=== PATIENT | female | born 1990 | race African-American/Black ===

== ENCOUNTER 2017-07-21 15:59 | Emergency (ER) | payer OTHER ==
[~2017-07-21] VITALS: Ht 160 cm; Wt 63.6 kg
[~2017-07-21 15:59] MED LIST: DSS100 PO; IBUP-2070 PO; PREN-134 PO
[2017-07-21 16:53] VITALS: BP 122/70
[2017-07-21] MEDS ORDERED: SODIUM CHLORIDE 0.9% 1,000 ML IV ONE (17:00)
[2017-07-21 17:13] LABS: BASOPHILS % (AUTO) 0.2 % (0.0-2.0); EOSINOPHILS % (AUTO) 0.7 % (1.0-6.0); HEMATOCRIT 38.2 % (36-46); HEMOGLOBIN 13.2 g/dL (12.0-16.0); LYMPHOCYTES # (AUTO) 2.7 K/uL (1.0-4.8); LYMPHOCYTES % (AUTO) 34.6 % (22.0-44.0); MEAN CORPUSCULAR HEMOGLOBIN 31.3 pg (26.0-34.0); MEAN CORPUSCULAR HGB CONC 34.4 G/dL (31.0-37.0); MEAN CORPUSCULAR VOLUME 91 fL (80-100); MONOCYTES % (AUTO) 12.1 % (2.0-9.0); NEUTROPHILS # (AUTO) 4.2 K/uL (1.8-7.7); NEUTROPHILS % (AUTO) 52.4 % (40.0-70.0); PLATELET COUNT (AUTO) 189 K/uL (150-450); RED BLOOD CELL COUNT(AUTO) 4.21 MIL/uL (4.00-5.20); RED CELL DISTRIBUTION WIDTH 14.4 % (11.5-14.5); WHITE BLOOD COUNT (AUTO) 7.9 K/uL (4.5-11.0)
[2017-07-21] MEDS ORDERED: DICYCLOMINE HCL 20 MG TABLET PO ONE (17:15)
[2017-07-21] MEDS ORDERED: ONDANSETRON HCL 4 MG/2 ML VIAL IVP ONE (17:15)
[2017-07-21 17:21] LABS: ANION GAP 11 mmol/L (8-16); CALCIUM, TOTAL 8.8 mg/dL (8.8-10.5); CARBON DIOXIDE 26 mmol/L (22-29); CHLORIDE 101 mmol/L (98-107); CREATININE 0.79 mg/dL (0.60-1.30); GLOMERULAR FILTR. RATE CALC > 60 mL/min (>60); POTASSIUM 3.4 mmol/L (3.5-5.1); SODIUM SERUM 138 mmol/L (136-145); UREA NITROGEN, BLOOD 11 mg/dL (7-18)
[2017-07-21 17:27] LABS: ALANINE AMINOTRANSFERASE 24 U/L (12-78); ALBUMIN 3.5 g/dL (3.4-5.0); ASPARTATE AMINOTRANSFERASE 20 U/L (15-37); BILIRUBIN,TOTAL 0.1 mg/dL (0.1-1.0); TOTAL PROTEIN, SERUM 7.6 g/dL (6.4-8.2)
== END 2017-07-21 18:13 | disposition home or self-care (01) ==
LOC: EMS 16:06
DX: R10.13 Epigastric pain (principal); R11.2 Nausea with vomiting, unspecified; R19.7 Diarrhea, unspecified; F17.210 Nicotine dependence, cigarettes, uncomplicated
CPT/HCPCS: 36415; 80053; 81025; 83690; 85025; 96374; 99284; J2405; J7030

== ENCOUNTER 2020-07-14 17:55 | Emergency (ER) | payer MEDICAID, OTHER ==
[~2020-07-14] VITALS: Ht 157.5 cm; Wt 65.0 kg
[2020-07-14 21:58] VITALS: BP 113/80
== END 2020-07-14 22:03 | disposition home or self-care (01) ==
LOC: EMS 17:55
DX: S52.045A Nondisplaced fracture of coronoid process of left ulna, initial encounter for closed fracture (principal); F17.210 Nicotine dependence, cigarettes, uncomplicated; Y08.89XA Assault by other specified means, initial encounter; Y93.89 Activity, other specified; Y92.89 Other specified places as the place of occurrence of the external cause; Y99.8 Other external cause status
CPT/HCPCS: 29105

== ENCOUNTER 2022-08-23 18:11 | Emergency (ER) | payer OTHER ==
[~2022-08-23] VITALS: Ht 157.5 cm; Wt 68.2 kg
[2022-08-23 18:15] VITALS: BP 113/62
[2022-08-23] MEDS ORDERED: ACET-2247 PO (18:18)
== END 2022-08-23 20:50 | disposition home or self-care (01) ==
LOC: EMS 18:30
DX: K08.89 Other specified disorders of teeth and supporting structures (principal); F17.210 Nicotine dependence, cigarettes, uncomplicated
CPT/HCPCS: 99283; Z7502

== ENCOUNTER 2022-09-14 20:13 | Emergency (ER) | payer OTHER ==
[~2022-09-14] VITALS: Ht 157.5 cm; Wt 65.0 kg
[~2022-09-14 20:13] MED LIST changes: +ACET-2247 PO; -DSS100 PO; -IBUP-2070 PO; -PREN-134 PO
[2022-09-14 20:34] VITALS: BP 102/63
[2022-09-14] MEDS ORDERED: KETOROLAC TROMETHAMINE 30 MG/ML VIAL IVP ONE (22:30)
[2022-09-14] MEDS ORDERED: ONDANSETRON HCL 4 MG/2 ML VIAL IVP ONE (22:30)
[2022-09-14] MEDS ORDERED: SODIUM CHLORIDE 0.9% 1,000 ML IV ONE (22:30)
[2022-09-15] MEDS ORDERED: IBUP-1492 PO (00:35)
== END 2022-09-15 01:35 | disposition home or self-care (01) ==
LOC: EMS 20:15
DX: G43.909 Migraine, unspecified, not intractable, without status migrainosus (principal); F17.210 Nicotine dependence, cigarettes, uncomplicated
CPT/HCPCS: 99284; 96374; 96361; 96375; J1885; J2405; J7030

== ENCOUNTER 2022-09-27 21:05 | Emergency (ER) | payer OTHER ==
[~2022-09-27] VITALS: Ht 157.5 cm; Wt 65.0 kg
[~2022-09-27 21:05] MED LIST changes: +IBUP-1492 PO
[2022-09-28] MEDS ORDERED: LIDOCAINE 5% TRANSDERMAL PATCH TD ONE (00:15)
[2022-09-28] MEDS ORDERED: KETOROLAC TROMETHAMINE 30 MG/ML VIAL IM ONE (00:15)
[2022-09-28] MEDS ORDERED: ACETAMINOPHEN 500 MG TABLET PO ONE (00:15)
[2022-09-28] MEDS ORDERED: LIDO700A15 TP (01:01)
[2022-09-28] MEDS ORDERED: ACET-66 PO (01:01)
[2022-09-28] MEDS ORDERED: IBUP-1492 PO (01:01)
[2022-09-28 01:11] VITALS: BP 110/71
== END 2022-09-28 01:21 | disposition home or self-care (01) ==
LOC: EMS 21:05
DX: G89.29 Other chronic pain (principal); M54.50 Low back pain, unspecified; F17.210 Nicotine dependence, cigarettes, uncomplicated
CPT/HCPCS: 99283; 96372; J1885

== ENCOUNTER 2022-10-19 20:45 | Emergency (ER) | payer OTHER ==
[~2022-10-19] VITALS: Ht 157.5 cm; Wt 64.0 kg
[~2022-10-19 20:45] MED LIST changes: +ACET-66 PO; +LIDO700A15 TP
[2022-10-19] MEDS ORDERED: LIDOCAINE 5% TRANSDERMAL PATCH TD ONE (22:45)
[2022-10-19] MEDS ORDERED: KETOROLAC TROMETHAMINE 30 MG/ML VIAL IM ONE (22:45)
[2022-10-19] MEDS ORDERED: HYDROCODONE/ACETAMINOPHEN 5-325 MG TABLET PO ONE (22:45)
[2022-10-19 23:30] VITALS: BP 123/81
[2022-10-19] MEDS ORDERED: CYCL-448 PO (23:37)
[2022-10-19] MEDS ORDERED: LIDO700A15 TP (23:37)
== END 2022-10-20 00:52 | disposition home or self-care (01) ==
LOC: EMS 20:46
DX: G89.29 Other chronic pain (principal); M54.50 Low back pain, unspecified; F17.210 Nicotine dependence, cigarettes, uncomplicated
CPT/HCPCS: 99283; 96372; J1885

== ENCOUNTER 2023-01-05 09:23 | Emergency (ER) | payer OTHER ==
[~2023-01-05] VITALS: Ht 157.5 cm; Wt 63.6 kg
[~2023-01-05 09:23] MED LIST changes: +CYCL-448 PO
[2023-01-05] MEDS ORDERED: LIDOCAINE 5% TRANSDERMAL PATCH TD ONE (12:15)
[2023-01-05] MEDS ORDERED: KETOROLAC TROMETHAMINE 60 MG/2 ML VIAL IM ONE (12:15)
[2023-01-05] MEDS ORDERED: METHOCARBAMOL 500 MG TABLET PO ONE (12:15)
[2023-01-05 12:49] VITALS: BP 113/77
[2023-01-05] MEDS ORDERED: IBUP-1492 PO (13:38)
[2023-01-05] MEDS ORDERED: METH-812 PO (13:39)
== END 2023-01-05 13:48 | disposition home or self-care (01) ==
LOC: EMS 09:34
DX: G89.29 Other chronic pain (principal); M54.50 Low back pain, unspecified; F17.210 Nicotine dependence, cigarettes, uncomplicated; Z88.8 Allergy status to other drugs, medicaments and biological substances
CPT/HCPCS: 99283; 96372; J1885